=== PATIENT | female | born 1970 | race African-American/Black ===

== ENCOUNTER → 2021-03-01 | Outpatient (CLI) | payer OTHER ==
[~2021-03-01] MED LIST: CARV25TA PO; LOSA100T14 PO; OXYC-314 PO
--- NOTE | 2021-03-01 08:26 | RAD ---
EXAM: Pelvic ultrasound HISTORY: Right ovarian cyst. COMPARISON: None. FINDINGS: Sonographic evaluation of the pelvis was performed transabdominally and transvaginally. The uterus is anteverted and measures 10.3 x 6.0 x 5.2 cm. The endometrial stripe measures 5 mm. A ti ny echogenic focus within the endometrium may represent a small air bubble or a calcification. Hypoec hoic mass along the posterior aspect of the lower uterine segment measures 2.0 x 1.4 cm. There is no significant free fluid. The right ovary measures 4.5 x 4.2 x 2.9 cm. A dominant follicle or small cyst measures 3.3 x 2.5 x 2 .9 cm. The left ovary measures 3.1 x 1.7 x 1.7 cm. There is normal Doppler flow bilaterally. There ar e no suspicious lesions. IMPRESSION: 1. 3.3 x 2.9 cm dominant right ovarian follicle or small cyst. This is likely benign. 2. 2.0 cm myometrial uterine fibroid. Electronically signed by: Duc Coburn MD (03/01/2021 8:23 AM) [id number]
== END ==
LOC: US 07:13
PROVIDERS: ATTEND Obstetrics & Gynecology
DX: N83.201 Unspecified ovarian cyst, right side (principal); D25.9 Leiomyoma of uterus, unspecified
CPT/HCPCS: 76856

== ENCOUNTER 2021-04-11 06:47 | Day surgery (SDC) | payer OTHER ==
[~2021-04-11] VITALS: Ht 160 cm; Wt 63.6 kg
[~2021-04-11 06:47] MED LIST changes: -CARV25TA PO; +HYDROmorphone 2 MG/ML VIAL IVP PRN; +IV RINGERS,LACTATED 1000ML 1,000 ML IV SCH; -LOSA100T14 PO; +MORPHINE SULFATE 2 MG/ML INJ. IVP PRN; -OXYC-314 PO; +PROCHLORPERAZINE 10 MG/2 ML VIAL. IVP PRN; +ceFAZolin SODIUM IV Push 1 GM VIAL. IVP PRN; +fentaNYL PF VIAL 100 MCG/2 ML VIAL IVP PRN
[2021-04-11 07:07] VITALS: BP 154/89
[2021-04-11] MEDS ORDERED: LOSA100T14 PO (07:20)
[2021-04-11] MEDS ORDERED: CARV25TA PO (07:20)
[2021-04-11] MEDS ORDERED: fentaNYL PF VIAL 100 MCG/2 ML VIAL ONE ×2 (07:56→09:15)
[2021-04-11] MEDS ORDERED: PROPOFOL 10 MG/ML (20ML) VIAL. IV ONE (07:56)
[2021-04-11] MEDS ORDERED: MIDAZOLAM HCL/PF 2 MG/2 ML VIAL. ONE (07:56)
[2021-04-11] MEDS ORDERED: ROCURONIUM 50 MG/5 ML VIAL. ONE (07:56)
[2021-04-11] MEDS ORDERED: LIDOCAINE 2% PF 5 ML VIAL. ONE (07:56)
[2021-04-11] MEDS ORDERED: SURGICEL HEMOSTAT 4X8 EACH. ONE (08:30)
[2021-04-11] MEDS ORDERED: BUPIVACAINE-EPI 0.25%-1:200000 MPF 30 ML VIAL. ONE (08:30)
[2021-04-11] MEDS ORDERED: KETOROLAC 30 MG/ML VIAL. ONE (09:11)
[2021-04-11] MEDS ORDERED: DEXAMETHASONE SOD PHOS 4 MG/ML VIAL ONE (09:11)
[2021-04-11] MEDS ORDERED: ONDANSETRON PF 4 MG/2 ML VIAL. ONE (09:11)
[2021-04-11] MEDS ORDERED: GLYCOPYRROLATE 1 MG/5 ML VIAL. ONE (09:22)
[2021-04-11] MEDS ORDERED: NEOSTIGMINE METHYLSULFATE 5 MG/5 ML SYRINGE. ONE (09:23)
[2021-04-11] MEDS ORDERED: SEVOFLURANE 31 TO 60 MINUTES. IH ONE (09:28)
--- NOTE | 2021-04-11 09:50 | PDOC ---
BRIEF OPERATIVE NOTE Date: Apr 11, 2021 Pre-Op Diagnosis 1. ROV Cyst 2. DUB Post-Op Diagnosis Same + Paratubal cyst ashley. Procedure Performed [facility] BSO Surgeon Dr. Hernandez [facility] Loader Machine: Greg Anesthesia Type: General Blood Loss 5 ml Specimens Obtained bilateral fallopian tubes and ovaries Findings nml size uterus, nml HUY; ashley. fallopian tubes with paratubal cysts and ROV with 4 cm cyst Complications none Operative Note see dictation MAISHA HERNANDEZ Jr, MD Apr 11, 2021 09:50
[2021-04-11] MEDS ORDERED: OXYC-314 PO (09:53)
--- NOTE | 2021-04-11 09:55 | DISCH ---
DISCHARGE INSTRUCTIONS Condition on Discharge Condition on Discharge: Stable Activity After Discharge Activity Instructions for Disc: Activity as tolerated Lifting Instructions after Dis: No heavy lifting Driving Instructions after Dis: Do not drive today Diet after Discharge Diet after Discharge: Regular Contacting the DRGabi after DC Call your doctor for: Concerns you may have Follow-Up Follow up with: Dr. Hernandez in 1 week MAISHA HERNANDEZ Jr, MD Apr 11, 2021 09:55
--- NOTE | 2021-04-11 10:10 | OP ---
DATE OF SURGERY: 04/11/2021 PREOPERATIVE DIAGNOSES: 1. Right ovarian cyst. 2. Dysfunctional uterine bleeding. POSTOPERATIVE DIAGNOSES: 1. Right ovarian cyst. 2. Dysfunctional uterine bleeding.. 3. Paratubal cyst bilaterally. PROCEDURE: Laparoscopic BSO. SURGEON: Dr. Hernandez. MANNEQUIN MOLDER: Greg. ANESTHESIA: GETA. ESTIMATED BLOOD LOSS: 5 mL COMPLICATIONS: None. FINDINGS: Normal size uterus; normal left ovary; bilateral fallopian tubes with paratubal cyst; right ovary with 4-cm cyst. SUMMARY: A 50-year-old female with persistent right ovarian cyst, requiring laparoscopic BSO. She was counseled on the risks, benefits and expectations and voiced clear understanding to proceed. DESCRIPTION OF PROCEDURE: The patient was taken to surgery suite and placed in dorsal lithotomy position, was prepped with Betadine solution for vaginal prep and ChloraPrep for abdominal prep. After adequate anesthesia, bivalve speculum was placed vaginally. The anterior lip of the cervix grasped with single tooth tenaculum. Uterine acorn manipulator was then placed. The bivalve speculum was removed. Attention was now placed on abdomen. Small transverse skin incision was made just below the umbilicus with a scalpel. The Veress needle was then placed through the infraumbilical incision site. The abdomen was allowed to insufflate up to 1.5 liters of CO2 gas. The Veress needle was then removed. A 5 mm trocar was placed. Scope was then positioned. Uterus was normal size. The right fallopian tube had a paratubal cyst. The right ovary demonstrated what appeared to be a simple 4 cm cyst. Left ovary appeared normal. Left fallopian tube also had a paratubal cyst. An incision was made in the left lower quadrant, in which a 5 mm trocar was placed. An additional incision made in the left lower quadrant, which an 11 mm trocar was placed with aid of the EnSeal device, the right infundibulopelvic ligament was coagulated and dissected. The right uteroovarian pedicle was coagulated and dissected. The right adnexa was coagulated and dissected from the pelvic sidewall. Same process took place with left adnexa. The specimens were placed in the Endobag and sent to pathology separately. Suction irrigation was utilized to verify good hemostasis. A small amount of normal saline was left in posterior cul-de-sac. The trocars were then removed under direct visualization. The abdomen was allowed to deflate as much as possible along with mechanical manipulation. The 11 mm port was closed at the fascial layer using 2-0 Vicryl suture in [id number] manner. The 3 skin incisions were reapproximated using 4-0 Vicryl suture in subcuticular manner. A 0.25% Marcaine with epinephrine was injected at each incision site. The uterine acorn manipulator and single tooth tenaculum were removed. The patient tolerated the procedure well and was taken to recovery room in stable condition. Sponge and needle count correct x 3. ILAN/AYDIN DR: Pretty TID: [id number]
[2021-04-11] MEDS ORDERED: IBUPROFEN 400 MG TABLET. PO ONE ×2 (10:50→11:00)
[2021-04-11 10:55] VITALS: BP 150/78
--- NOTE | 2021-04-12 18:08 | PATHOLOGY ---
[facility] Accession Number: [id number] . 01 Material submitted: . PART A: ovary - RT FALLOPIAN TUBE AND OVARY. Modifiers: right PART B: fallopian tube - LT FALLOPIAN TUBE AND OVARY. Modifiers: left . 01 Clinical history: . OPERATIVE LAPAROSCOPY W/ RL SO RIGHT OVARIAN CYST . 02 Diagnosis: A. Fallopian tube and ovary, right salpingo-oophorectomy: - Cystic follicles of ovary. - Right paratubal cysts (2). . B. Fallopian tube and ovary, left salpingo-oophorectomy: - Cystic follicles of ovary. - Left paratubal cyst. . ([facility]:uche; 04/12/2021) [facility] 04/12/2021 1149 Local . 02 Comment: There is no atypia or evidence of malignancy. . ([facility]:mm; 04/12/2021) . 02 Electronically signed: . Jaswant William MD, Pathologist NPI- [id number] . 01 Gross description: . A. The specimen is received in formalin, labeled "Wilma Luther, right fallopian tube and ovary". It consists of an ovary (3 g, 2.1 x 2.0 x 1.1 cm) with attached fimbriated fallopian tube (4.0 cm long by 0.5 cm in diameter). The external surface of the ovary appears alberts, cerebriform and intact. Sectioning reveals alberts, focally cystic (ranging from 0.3-0.7 cm), but otherwise grossly unremarkable cut surfaces. The fallopian tube appears alberts-brown and smooth with 2 smooth-walled, serous fluid filled cysts (0.7 and 1.3 cm). Sectioning reveals an unremarkable lumen with a 0.1 cm wall thickness. Meat Trimmer sections are submitted as follows: A1: Ovary with cyst A2: Fallopian tube, cyst, fimbriated ends entirely submitted . B. The specimen is received in formalin, labeled "Wilma Luther, left fallopian tube and ovary". It consists of an ovary (2 g, 1.7 x 1.6 x 1.0 cm) with attached fimbriated fallopian tube (4.8 cm long by 0.5 cm in diameter). The external surface of the ovary appears alberts, cerebriform, focally cystic and intact. Sectioning reveals a smooth-walled, serous fluid filled cyst (0.5 x 0.5 x 0.3 cm). The remaining cut surfaces appears grossly unremarkable. The fallopian tube appears alberts-brown and smooth with a smooth-walled, serous fluid filled cyst (0.7 x 0.5 x 0.5 cm) adjacent to the fimbriated ends. Sectioning reveals an unremarkable lumen with a 0.1 cm wall thickness. Meat Trimmer sections are submitted as follows: B1: Ovary with cyst B2: Fallopian tube, cyst, fimbriated ends entirely submitted (MRF; 04/11/2021) MFE/MFE 04/11/2021 2155 Local . 02 Pathologist provided ICD-10: N83.8 . 02 CPT . 796423, [id number] Specimen Comment: A courtesy copy of this report has been sent to [phone], [phone] Specimen Comment: [id number] Specimen Comment: Report sent to / DR NOLEN Performed at: 01 [facility] [address] [address], [place], [place] [id number] MD William Lopez MD Phone: [phone] Performed at: 02 [facility] [address] [place], [place] [id number] MD Jaswant William MD Phone: [phone]
== END 2021-04-11 11:40 | disposition home or self-care (01) ==
LOC: SURG 06:47
PROVIDERS: ATTEND Obstetrics & Gynecology
DX: N83.201 Unspecified ovarian cyst, right side (principal); N93.8 Other specified abnormal uterine and vaginal bleeding; N83.8 Other noninflammatory disorders of ovary, fallopian tube and broad ligament; I10 Essential (primary) hypertension; Z79.899 Other long term (current) drug therapy; Z98.890 Other specified postprocedural states
CPT/HCPCS: 58661; 81025; A4930; A6219; J0690; J1100; J1885; J2250; J2405; J2704; J2710; J3010; J3490; A4452